=== PATIENT | male | born 1945 | race American Indian/Alaskan Native ===

== ENCOUNTER 2021-09-06 06:05 | Day surgery (SDC) | payer MEDICARE ==
[2021-09-02 11:42] LABS: Hematocrit 39.9 % (35.5-45.6); Mean Corpuscular HGB Conc 33 % (32-34); Mean Corpuscular Volume 94 fl (84-94); Platelet Count 184 K/mm3 (140-440); Red Blood Count 4.24 M/mm3 (3.65-5.03); Red Cell Distribution Width 12.2 % (13.2-15.2)
[2021-09-02 11:51] LABS: Alanine Aminotransferase 37 units/L (7-56); Albumin 4.3 g/dL (3.9-5); BUN/Creatinine Ratio 11; Blood Urea Nitrogen 12 mg/dL (9-20); Calcium 9.3 mg/dL (8.4-10.2); Hemolysis Index 5
[~2021-09-06 06:05] MED LIST: IOHEXOL 300 MG/ML 50ML IV ONE; LACTATED RINGERS 1,000 ML IV SCH; WATER FOR IRRIG STERILE 1,500 ML BOTTLE IR ONE; WATER FOR IRRIG STERILE 2000 ML IR ONE
[2021-09-06] MEDS ORDERED: BACTERIOSTATIC SODIUM CHLORIDE 0.9% 30 ML VIAL INFILTRATI ONE (06:19)
--- NOTE | 2021-09-06 07:17 | Anesthesia Day of Surgery ---
Anesthesia Day of Surgery - Day of Surgery Patient Examined: Yes Patient H&P Reviewed: Yes Patient is NPO: Yes
--- NOTE | 2021-09-06 07:17 | Anesthesia Consultation ---
Anesthesia Consult and Med Hx Date of service: 09/06/21 - Airway Anesthetic Teeth Evaluation: Partials (removed. other dentation intact) ROM Head & Neck: Adequate Mental/Hyoid Distance: Adequate Mallampati Class: Class I Intubation Access Assessment: Good - Pulmonary Exam CTA: Yes - Cardiac Exam Cardiac Exam: RRR - Pre-Operative Health Status ASA Pre-Surgery Classification: ASA2 Proposed Anesthetic Plan: General (BPH) - Pulmonary Hx Smoking: No Hx Sleep Apnea: No (YADIRA PRE SCREEN LOW RISK) - Cardiovascular System Hx Hypertension: No - Central Nervous System Hx Psychiatric Problems: No - Hematic Hx Anemia: No - Other Systems Hx Cancer: No
[2021-09-06] MEDS ORDERED: LIDOCAINE MPF (2%) 20 MG/1 ML VIAL 5 ML ONE (07:25)
[2021-09-06] MEDS ORDERED: propofoL 200 MG/20 ML VIAL IV ONE (07:25)
[2021-09-06] MEDS ORDERED: ONDANSETRON 4 MG/2 ML INJ ONE (07:30)
[2021-09-06] MEDS ORDERED: GENTAMICIN/NS 80 MG/100 ML 100 ML IV SCH (07:30)
[2021-09-06] MEDS ORDERED: ceFAZolin/STERILE WATER 2 GM/20 ML SYRINGE IV NR (07:30)
[2021-09-06] MEDS ORDERED: MIDAZOLAM 2 MG/2 ML INJ ONE (07:30)
[2021-09-06] MEDS ORDERED: fentaNYL 100 MCG/2 ML INJ ONE (07:31)
[2021-09-06] MEDS ORDERED: HYDROmorphone 1 MG/1 ML INJ IV PRN (08:00)
[2021-09-06] MEDS ORDERED: HYDROcodone/ACETAMINOPHEN 5-325 MG TAB PO PRN (08:00)
[2021-09-06] MEDS ORDERED: ONDANSETRON 4 MG/2 ML INJ IV PRN (08:00)
--- NOTE | 2021-09-06 09:02 | Short Stay Summary ---
Short Stay Documentation Date of service: 09/06/21 - History H&P: obtained from office - Allergies and Medications Current Medications: Allergies No Known Allergies Allergy (Verified 09/01/21 18:02) Home Medications Medication Instructions Recorded Confirmed Last Taken Type Aspirin [Adult Aspirin] 81 mg PO DAILY 09/01/21 09/06/21 5 Days Ago History ~09/01/21 Furosemide [Lasix] 20 mg PO QDAY 09/01/21 09/06/21 09/05/21 History Meloxicam [Mobic] 7.5 mg PO QDAY 09/01/21 09/06/21 09/02/21 History Simvastatin 20 mg PO QHS 09/01/21 09/01/21 09/05/21 History Tamsulosin [Flomax] 0.4 mg PO QDAY 09/01/21 09/01/21 09/05/21 History Timolol [Betimol] 1 drop OP QHS 09/01/21 09/01/21 09/05/21 History Active Medications Hydrocodone Bitart/Acetaminophen (Hydrocodone/Acetaminophen 5-325 Mg Tab) 2 each PO ONCE PRN PRN Reason: Pain, Moderate (4-6) Stop: 09/06/21 17:00 Cefazolin Sodium (Cefazolin/Sterile Water 2 Gm/20 Ml Syringe) 2 gm IV PREOP NR Stop: 09/06/21 21:00 Hydromorphone HCl (Hydromorphone 1 Mg/1 Ml Inj) 0.5 mg IV Q10MIN PRN PRN Reason: Pain , Severe (7-10) Stop: 09/06/21 17:00 Lactated Ringer's (Lactated Ringers) 1,000 mls @ 100 mls/hr IV DIRECT RUFINO Stop: 09/06/21 23:59 Last Admin: 09/06/21 06:45 Dose: 100 mls/hr Documented by: Gentamicin Sulfate/Sodium Chloride (Gentamicin/Ns 80 Mg/100 Ml) 100 mls @ 200 mls/hr IV PREOP RUFINO Stop: 09/06/21 21:00 Ondansetron HCl (Ondansetron 4 Mg/2 Ml Inj) 4 mg IV ONCE PRN PRN Reason: Nausea And Vomiting Stop: 09/06/21 17:00 - Brief post op/procedure progress note Date of procedure: 09/06/21 Pre-op diagnosis: elevated psa, bph Post-op diagnosis: same Procedure: cysto, rpg, pus 95cc, bx prostate Anesthesia: GETLaly Surgeon: ISABEL PISANO Estimated blood loss: none Pathology: list (prostate cores) Specimen disposition: to lab Condition: stable - Hospital course Hospital course: ultram, bactrim, post op info on chart - Disposition Condition at discharge: Stable Disposition: 01 HOME / SELF CARE / HOMELESS Short Stay Discharge Plan Follow up with: JUDITH HAMPTON MD [Primary Care Provider] - 7 Days
[2021-09-06] MEDS ORDERED: IOHEXOL 300 MG/ML 50ML IV ONE (09:16)
[2021-09-06] MEDS ORDERED: WATER FOR IRRIG STERILE 1,500 ML BOTTLE IR ONE (09:16)
[2021-09-06] MEDS ORDERED: WATER FOR IRRIG STERILE 2000 ML IR ONE (09:16)
--- NOTE | 2021-09-06 09:44 | Ultrasound Report ---
Ultrasound-guided prostate biopsy HISTORY: ELEVATED PSA. TECHNIQUE: Grayscale and color imaging performed. COMPARISON: None IMPRESSION: Prostate volume is 96 mL. Prostate appears slightly heterogeneous. Imaging guidance was p rovided for prostate biopsy. Please refer to the operative note for complete details. Signer Name: Ricky Whyte MD Signed: 09/06/2021 9:40 AM Workstation Name: [id number]
--- NOTE | 2021-09-06 11:06 | Operative Report ---
DATE OF SURGERY: 09/06/2021 PREOPERATIVE DIAGNOSES: Elevated prostate-specific antigen, prostatic lesion, and benign prostatic hypertrophy. POSTOPERATIVE DIAGNOSES: Elevated prostate-specific antigen, prostatic lesion, and benign prostatic hypertrophy. PROCEDURE: Cystoscopy, bilateral retrograde pyelograms, transrectal ultrasound, and biopsy of prostate (prostate ultrasound revealed a 95 mL gland). SURGEON: Shaw Ulrich MD ANESTHESIA: General. ESTIMATED BLOOD LOSS: Minimal. FLUIDS: Crystalloid. COMPLICATIONS: No complications. INDICATIONS: This 75-year-old gentleman seen in the office for an elevated PSA, underwent prostate biopsy in 2018, was negative. He was followed over the years. His PSA continued to rise. MRI revealed a lesion in the apex of the prostate. The patient refused a fusion biopsy and presents now for repeat prostate ultrasound and biopsy. Risks, benefits, and complications were explained. DESCRIPTION OF PROCEDURE: The patient was taken to the operative suite, placed in a supine position. After adequate general anesthesia, placed in the dorsal lithotomy position, prepped and draped in a sterile fashion. Pancystourethroscopy was performed with a 22-[place]err[place]ian Storz cystoscope, no urethral abnormalities. His prostate displayed trilobar obstruction with a significant median bar. Bladder, no tumors or stones were noted. Both ureteral orifices in normal position. The patient had significant trabeculation and small cell use. Bilateral retrograde pyelograms were obtained with an 8-[place] catheter and 8 mL of contrast. No filling defects or obstruction. He did have significant J hook ____ with enlarged prostate. Using a transrectal probe, ultrasound of the prostate was obtained, 95 mL gland. No significant lesions on ultrasound, but a template biopsy was performed, 4 cores ____ at the mid apex of the prostate. Rectal exam was benign. Due to his enlarged prostate and median lobe, an 18-[place]err[place]ian [place] catheter was left indwelling. He is on Flomax 2 tablets a day. We will do a voiding trial in a few days. He will go home on Bactrim and Ultram. TID: [id number] RECEIPT: [id number] PETRA/NATHANAEL/LIZ
[2021-09-06 11:15] VITALS: BP 138/70
--- NOTE | 2021-09-06 12:31 | Post Anesthesia Evaluation ---
- Post Anesthesia Evaluation Patient Participated: Yes Airway Patent: Yes Stable Respiratory Function: Yes Nausea/Vomiting: No Temp > 96.8F: Yes Pain Manageable: Yes Adequeate Hydration: Yes Anesthesia Complications: No
--- NOTE | 2021-09-08 10:39 | Fluoroscopy Report ---
INTRAOPERATIVE FLUOROSCOPY: RETROGRADE UROGRAPHY INDICATION: ELEVATED PSA/URINARY RETENTION. TECHNIQUE: Intraoperative spot images were obtained during the procedure. FINDINGS: Limited submitted imaging demonstrates expected opacification of the right ureter and right renal col lecting system. There is a questionable stricture along the distal third of the left ureter just abov e the left hip. Otherwise, there is unremarkable opacification of the left ureter and left renal june ecting system. There is expected drainage of contrast bilaterally. Please see the report for the proc edure for further details. Fluoroscopy Time: 26 seconds. Fluoroscopy Images: 7. Signer Name: Alfredo Hodgson MD Signed: 09/08/2021 10:35 AM Workstation Name: [id number]
== END 2021-09-06 11:30 | disposition home or self-care (01) ==
LOC: OR 06:05
PROVIDERS: ATTEND Urology
DX: R97.20 Elevated prostate specific antigen [PSA] (principal); N40.0 Benign prostatic hyperplasia without lower urinary tract symptoms; Z20.822 Contact with and (suspected) exposure to COVID-19; Z79.82 Long term (current) use of aspirin; Z79.899 Other long term (current) drug therapy; Z98.890 Other specified postprocedural states
CPT/HCPCS: 36415; 55700; 74420; 76872; 80053; 82962; 85027; 88305; A4217; C1758; J0690; J1580; J2250; J2405; J2704; J3010; J7120; Q9967; U0003; 88344